=== PATIENT | female | born 1945 | race Caucasian/White ===

== ENCOUNTER 2021-10-22 14:40 | Outpatient (CLI) | payer MEDICARE ==
[2021-10-22] MEDS ORDERED: ALBUTEROL 1 PUFF INH STA (16:38)
== END 2021-10-22 14:41 | disposition home or self-care (01) ==
LOC: RT 14:40
PROVIDERS: ATTEND Nurse Practitioner Family
DX: J45.909 Unspecified asthma, uncomplicated (principal); Z78.0 Asymptomatic menopausal state
CPT/HCPCS: 94060; 94727; 94729

== ENCOUNTER 2021-10-29 09:47 | Outpatient (CLI) | payer MEDICARE, OTHER ==
--- NOTE | 2021-10-29 13:09 | DEXA Report ---
PROCEDURE: Dexa Spine and/or Hip INDICATIONS: POSTMENOPAUSAL TECHNIQUE: Dual energy x-ray absorptiometry (DXA) was performed on a Object Matrix System. Regions measur ed are the AP Spine, femoral neck, and if needed forearm. COMPARISON: None. FINDINGS: Lumbar Spine: Bone Mineral Density 1.4 g/cm/cm,T score 2.0, normal bone density Left Hip: Bone Mineral Density 1.1 g/cm/cm,T score 0.6, normal bone density Impression: Normal bone density. Patients with diagnosis of osteoporosis or osteopenia should have regular bone mineral density assess ment. For those eligible for Medicare, routine testing is allowed once every 2 years. Testing frequ ency can be increased for patients who have rapidly progressing disease or for those who are receivin g medical therapy to restore bone mass. Reviewed by: Max Holbrook MD on 10/29/2021 1:07 PM PDT Approved by: Max Holbrook MD on 10/29/2021 1:07 PM PDT Station ID: [id number]
== END 2021-10-29 09:48 | disposition home or self-care (01) ==
LOC: DI 09:47
PROVIDERS: ATTEND Nurse Practitioner Family
DX: Z78.0 Asymptomatic menopausal state (principal)